=== PATIENT | female | born 1970 | race Caucasian/White ===

== ENCOUNTER 2017-02-18 13:00 | Inpatient (IN) | payer BC ==
[~2017-02-18] VITALS: Ht 157.5 cm; Wt 101.4 kg
--- NOTE | ~2017-02-18 | CON ---
PATIENT'S NAME: GENA VENTURA [facility] AGE: 46 Y [address] ROOM: [address] [place], [place] [address] LOCATION: [facility] ADMIT DATE: 02/18/2017 Consultation DISCHARGE DATE: FAMILY PHYSICIAN: Latasha Harrison MD ATTENDING PHYSICIAN: Corina RHODES REFERRING PHYSICIAN: LUCIA LUNDY MD Consult for TREVON Park. HISTORY OF PRESENT ILLNESS: This 46-year-old lady is referred for rehab/GIRP evaluation admitted on 02/18/2017 with history as per her initial history and physical, she felt achy all over on last Saturday, specially when moving alone. She got up in the morning, feeling that way, later she felt her speech was slurred, she was seen at the local health care. Later CT scan at the local hospital was done which showed no gross abnormalities and it was noticed also that she was also a little bit weaker on the right side, right upper extremity more than right lower extremity. She also was noticed to have a very minimal facial droop on the right side. Denied any fever. No cough, no expectoration, no palpitation, no headaches. Now, she has slight headache, but no trauma. Denied any similar condition in the past. No palpitation. Denied any shortness of breath. She has history of hypertension, probably diabetes, and also status post cholecystectomy. Status post section x2. Alert and oriented. Voice is clear and not wet and very mild right facial droop and there is very mild right distal temporal visual neglect. Tongue is also very mildly weaker on the right side in comparison to the left; however, the soft palate is moving symmetrical. Voice is clear and not wet. She has no shortness of breath at the present time, and she is able to comprehend and express without difficulty. On examination all seems to be within normal limits including chest; however, she has a systolic murmur in the apical region, not radiating. She denied any shortness of breath again upon asking. No clubbing of fingers, no cyanosis. VITAL SIGNS: Blood pressure 158/97, temperature 98.4, pulse 82 and regular, respiration rate 16. She is 5 feet 2 inches and weighs 99.4 kg. Deep tendons are present and equal throughout. PATIENT'S NAME: GENA VENTURA [facility] AGE: 46 Y [address] ROOM: [place] [address] LOCATION: [facility] ADMIT DATE: 02/18/2017 Consultation DISCHARGE DATE: FAMILY PHYSICIAN: Latasha Harrison MD ATTENDING PHYSICIAN: Corina RHODES She can follow without difficulty multistaged instructions. She can move all four. Muscle strength seems to be within normal limits. There is very little if any weakness on the right side upper extremity in comparison to the left. She is a right-handed person. She has good bowel and bladder control at the present time. Sensation is within normal limits. MEDICATIONS: She is on the following medications. 1. Heparin sodium. 2. Insulin detemir. 3. Insulin aspart. 4. NaCl 0.9%. 5. Protonix. 6. Aspirin. 7. Lipitor. 8. Levothyroxine. 9. Glucagon. 10. Glucose. 11. Dextrose. 12. Tylenol. 13. Lisinopril. 14. Metformin. 15. Alogliptin. ASSESSMENT AND PLAN: I feel that this lady is doing well so far. If she continues to do well this way, I think she can go on outpatient basis. However, if she does not do well down the line, I will be happy to take her for intensive rehabilitation. She has been initiated on PT/OT. I will add speech therapy to her therapies. I will follow alongside with you. I would like to follow on her down the line about 2 weeks post discharge. She should not drive for the time being. All the above was explained to her in detail and to her . They verbalized understanding and agreement. I will follow alongside with you. YAMILA HERMAN MD WMS/modl /[id number] d: 02/19/171931 t: 02/20/17 0811, CONSULTATION REPORT
--- NOTE | ~2017-02-18 | CON ---
PATIENT'S NAME: GENA VENTURA [facility] AGE: 46 Y [address] ROOM: [id number] [place], [place] [address] LOCATION: [facility] ADMIT DATE: 02/18/2017 Consultation DISCHARGE DATE: FAMILY PHYSICIAN: Latasha Harrison MD ATTENDING PHYSICIAN: Corina RHODES DATE OF CONSULTATION: 02/19/2017 REFERRING PHYSICIAN: LUCIA LNUDY MD TIME: 02:05 p.m. CHIEF COMPLAINT: Stroke. HISTORY OF PRESENT ILLNESS: This is a 46-year-old female, whose symptoms started on Saturday morning. She was taking a nap and awoke, and felt like her body ached all over, but also her speech was not quite right and her face was drooping. She knew to present in a rapid fashion to the [facility], and underwent evaluation there. She did have a CT scan of the head without contrast, which was negative. She did have an elevated blood sugar, elevated blood pressure, and elevated TSH level. Her A1c was 11.2 and TSH was 25. There was no report of a lipid level being drawn. She was given 3 L of fluids, started on lisinopril and Janumet and Synthroid, and sent home. The patient's symptoms had not resolved, and she was still having facial droop and speech slurring, as well as right upper arm weakness. She then went to the [facility] for further evaluation and treatment. The PA there, Dat Rivas, discussed the case with Dr. Castelan of [facility], and it was recommended that the patient be transferred for MRI and further workup to [facility]. She is admitted at this time for further evaluation. The patient denies any significant past medical history, although she does state she is not a health- thinking individual. She does have some frontal and occipital headaches, which she takes ibuprofen for. They are pounding at times. She usually seeks a dark room, and the symptoms florentino. She denies any history of chest pain, pressure, palpitations, difficulty breathing, any wheezing, or respiratory issues. She denies any abdominal pain, nausea, vomiting, diarrhea, or constipation. She did not have any vision changes with this instance. She does wear glasses, and visited her Eye doctor about two years ago. Although the patient states her family history is positive for diabetes, she has not been diagnosed with it until recently. She did have a neck abscess in 2004, where she was on antibiotics for quite some time. She denies any ill contacts or recent travel. Her life has been a little bit stressful lately because of the graduation of her oldest son. She does work nights and does have issues with sleeping, and appears to catnap throughout the day rather than getting PATIENT'S NAME: GENA VENTURA [facility] AGE: 46 Y [address] ROOM: [id number] [place], [place] [address] LOCATION: [facility] ADMIT DATE: 02/18/2017 Consultation DISCHARGE DATE: FAMILY PHYSICIAN: Latasha Harrison MD ATTENDING PHYSICIAN: Corina RHODES any long stretches of good sleep. PRIOR MEDICAL HISTORY: Includes 1. Chronic headaches. 2. History of neck abscess in 2009. SURGICAL HISTORY: 1. Cholecystectomy in 1999. 2. x2. ALLERGIES: NO KNOWN MEDICAL ALLERGIES. MEDICATIONS: 1. Recently started on Synthroid 25 mcg daily. 2. Janumet 50/500 twice daily. 3. Lisinopril 10 mg daily. FAMILY HISTORY: Significant for diabetes in her mother and two brothers. Her dad had appendiceal cancer and at age 48. Her mother had a pulmonary embolus and at age 46. She is uncertain of the workup that was performed after that, and uncertain whether any condition precipitated the PE. She had one brother who had diabetes and of a heart attack. She has one living brother, who has diabetes and possibly has a blood clot. She has one living sister with no medical illnesses. SOCIAL HISTORY: The patient denies any alcohol or tobacco use. 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 REVIEW OF SYSTEMS: A full review of systems were obtained. Pertinent positives are noted in the HPI. All other review of systems and questions were negative. PHYSICAL EXAMINATION: VITAL SIGNS: The patient is 5 feet 2 inches and weighs 100.5 kilos. Her blood pressure is 159/82, pulse is 78, she is afebrile, and she is 96% on room air. GENERAL: The patient is alert and oriented, in no acute distress. Her affect is somewhat flat. HEENT: Head is normocephalic and atraumatic. Eyes: PERRLA. EOMI. NECK: Supple. No adenopathy or thyromegaly. LUNGS: Clear to auscultation and percussion bilaterally. Breath sounds are PATIENT'S NAME: GENA VENTURA [facility] AGE: 46 Y [address] ROOM: [place] [address] LOCATION: [facility] ADMIT DATE: 02/18/2017 Consultation DISCHARGE DATE: FAMILY PHYSICIAN: Latasha Harrison MD ATTENDING PHYSICIAN: Corina RHODES even and regular throughout. HEART: Regular rate and rhythm without murmur. No carotid bruits were auscultated. ABDOMEN: Soft and nondistended with positive bowel sounds auscultated. No masses. NEUROLOGICAL: As far as her NIH Stroke Scale, 1. Consciousness was zero. 2. Month and age were zero. 3. Open and close eyes was zero. 4. Best gaze was zero. 5. Visual field was zero. 6. Facial paresis was 1. 7. Left arm was zero. 8. Right arm was 1. 9. Left leg was zero. 10. Right leg was 1. 11. Limb ataxia was zero. 12. Sensory was zero. 13. Best language was zero. 14. Dysarthria was 1. 15. Extension and attention were zero. With a total score of 4. There was some slight dysmetria on the right hand with rapid alternating hand movements. The patient's gait was observed earlier with Physical Therapy, and the patient denied any issues with balance and seemed to have an easy wide-based gait. DIAGNOSTIC STUDIES: Her LDL is 190. MRI reveals a left posterior limb internal capsule with centriform nuclei stroke. Her CTA shows web-like stenosis present at the supraclinoid of the left ICA. Her A1c from the admitting hospital was 11.2 and her TSH was 25. EKG shows sinus rhythm. IMPRESSION AND PLAN: 1. 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 We will do a full stroke workup including echo and carotids to evaluate cause of the stroke. Although the patient has had undiagnosed risk factors such as hyperlipidemia and diabetes, as well as hypertension, we cannot assume that these are causes of the stroke without a full workup. 2. History of blood clots in her family. Because of her young age and the history of blood clots in her family, we will do a hypercoagulable workup on this patient. 3. Health-care maintenance. The patient has not seen a healthcare provider for some time. Extensive amount of time was talked to the patient that these comorbid conditions must be controlled to prevent further stroke. PATIENT'S NAME: GENA VENTURA [facility] AGE: 46 Y [address] ROOM: [place] [address] LOCATION: [facility] ADMIT DATE: 02/18/2017 Consultation DISCHARGE DATE: FAMILY PHYSICIAN: Latasha Harrison MD ATTENDING PHYSICIAN: Corina RHODES The patient voiced understanding. 4. Therapies for rehabilitation. She has been started on Speech, OT, and PT therapies. Hopefully, the patient can go home and continue these therapies on an outpatient basis. The plan of care was discussed with Shantelle Gutierrez, nurse practitioner for the Hospitalist team. We do appreciate participating in this patient's care. Please call us if you have any questions. CINTHYA IBARRA APRN FOR DENEEN CASTELAN MD PP/modl /[id number] d: 02/19/17 2321 t: 02/22/17 1743, CONSULTATION REPORT
--- NOTE | ~2017-02-18 | CON ---
PATIENT'S NAME: GENA HARDEN [facility] AGE: 46 Y [address] ROOM: [place] [address] LOCATION: [facility] ADMIT DATE: 02/18/2017 Consultation DISCHARGE DATE: FAMILY PHYSICIAN: Latasha Harrison MD ATTENDING PHYSICIAN: Corina RHODES DATE OF CONSULTATION: 02/19/2017 REFERRING PHYSICIAN: LUCIA LUNDY MD I personally saw and examined the patient, Gean Harden, with nurse practitioner, Arianne Atkinson, on 02/19/2017. [place] portions of history and examination were repeated. I agree with the above discussed assessment and plan of care. MD STELLA CEJAZ/modl /[id number] d: t: 02/20/17 0101, CONSULTATION REPORT
--- NOTE | ~2017-02-18 | HP ---
PATIENT'S NAME: GENA VENTURA [facility] AGE: 46 Y [address] ROOM: [id number] [place], [place] [address] LOCATION: [facility] ADMIT DATE: 02/18/2017 History & Physical DISCHARGE DATE: FAMILY PHYSICIAN: PHYSICIAN, UNKNOWN ATTENDING PHYSICIAN: Corina RHODES DATE OF SERVICE: 02/18/2017 CHIEF COMPLAINT: Right-sided facial droop, right upper extremity weakness, and slurred speech. HISTORY OF PRESENT ILLNESS: The patient is a 46-year-old female, whose symptoms initially started on Saturday morning. She felt that when she woke up, her body just kind of aches all over, and she felt weak. As the morning progressed, she noticed some right- sided facial droop and slurred speech. She did present to [facility] and underwent evaluation there. The patient had a CT scan of the head without contrast, which was reportedly negative. The patient had elevated blood sugar, elevated blood pressure, and elevated TSH level. The patient was given 3 L of IV fluid and was started on Janumet, Synthroid, and lisinopril, and was discharged home. The patient's symptoms continued, and she also started noticing some right arm weakness as well. The patient then went to the [facility] this morning for further evaluation. The PA there, Dat Rivas, discussed the case with Dr. Suresh through tele-neuro, and it was recommended that the patient be transferred for MRI and further workup. The patient is admitted at this time for further evaluation. The patient denies any significant past medical history and does not take any medications. She has chronic headaches, which she describes as migrainous. She gets some pounding at times. Locations maybe frontal or occipital. She usually takes ibuprofen and lies down in a dark place and the symptoms florentino. She denies any chest pain, pressure, or palpitations, orthopnea, or orthostasis or PND. She has not had any abdominal pain, nausea, vomiting, diarrhea, or constipation. She has not had any vision changes. She does wear glasses and last visited her eye doctor 2 years ago. The patient notes significant family history for diabetes, but has never been diagnosed with it thus far. At her last eye exam, she had no changes of diabetic retinopathy. The patient did have history of neck abscess in 2009, which was treated with IV antibiotics, she thinks for 5 weeks. The patient denies any recent illnesses. Denies any recent traumas. Denies any recent skin rashes or lesions. She has been under increased stress recently with the graduation of her oldest son. PAST MEDICAL HISTORY: Illnesses include: PATIENT'S NAME: GENA VENTURA [facility] AGE: 46 Y [address] ROOM: [place] [address] LOCATION: [facility] ADMIT DATE: 02/18/2017 History & Physical DISCHARGE DATE: FAMILY PHYSICIAN: PHYSICIAN, UNKNOWN ATTENDING PHYSICIAN: Corina RHODES 1. Chronic headaches. 2. History of neck abscess in 2009, status post IV antibiotics. SURGICAL HISTORY: Includes cholecystectomy in 1999 and x2. ALLERGIES: NO KNOWN MEDICAL ALLERGIES. MEDICATIONS: Recently started on: 1. Synthroid 25 mcg daily. 2. Janumet 50/500 twice daily. 3. Lisinopril 10 mg daily. FAMILY HISTORY: Significant for diabetes in her mother and 2 brothers. Her dad had appendiceal cancer and at age 48. Her mom had a pulmonary embolus and at age 46. She is uncertain the workup that was performed after that and uncertain whether any conditions precipitated the PE. She had one brother, who had diabetes and of a heart attack, and she has one living brother who has diabetes and possibly have a blood clot. She has one living sister with no medical illnesses. SOCIAL HISTORY: The patient denies any alcohol or tobacco use. 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 REVIEW OF SYSTEMS: Full review of systems was obtained. Pertinent positives are noted above. Others are all deemed to be negative and noncontributory. PHYSICAL EXAMINATION: VITAL SIGNS: The patient is 5 feet 2 inches, weight is 100.5 kilos, blood pressure is 161/92, pulse is 87. She is 96% on room air. GENERAL: The patient is alert, oriented, in no acute distress. HEENT: Head: Normocephalic and atraumatic. Eyes: PERRLA, EOMI. Ears: TMs are intact, nonerythematous, canals are clear. Nose is patent. Mucosa is pink and moist. Throat: Posterior pharynx is not erythematous. No tonsillar hypertrophy or exudates. NECK: Supple. No adenopathy or thyromegaly. LUNGS: Clear to auscultation and percussion bilaterally. Breath sounds are even and regular throughout. HEART: Regular rate and rhythm without murmur. No carotid bruits or JVD. ABDOMEN: Soft, nondistended. Positive bowel sounds auscultated. No masses PATIENT'S NAME: GENA VENTURA [facility] AGE: 46 Y [address] ROOM: [id number] [place], [place] [address] LOCATION: [facility] ADMIT DATE: 02/18/2017 History & Physical DISCHARGE DATE: FAMILY PHYSICIAN: PHYSICIAN, UNKNOWN ATTENDING PHYSICIAN: Corina RHODES or organomegaly palpated. BACK: No CVA tenderness. No paraspinous tenderness on palpation. MUSCULOSKELETAL: Appropriate range of motion is noted in bilateral upper and lower extremities without significant crepitus or joint effusion. NEUROLOGIC: Distal sensation is intact. Cranial nerves 2 through 12 grossly intact. The patient does have a very slight facial droop noted on the right. Power in her right arm is 4/5. Power in her left arm is 5/5. Bilateral lower extremities are equal in strength and ability. LABORATORY STUDIES: From referring facility shows sodium of 138, potassium 3.9, chloride 105, bicarb 22, BUN 12, creatinine 0.9, glucose 247. CK-MB is 1.2, CPK is 35, troponin 0.009. TSH was 25.85, total cholesterol 262. Triglycerides 154, HDL 41, LDL 190. White blood cell count was 8.9, hemoglobin 12.5, hematocrit 37.1, platelets 239. Hemoglobin A1C was 11.2. EKG here shows sinus rhythm with heart rate of 88. IMPRESSION AND PLAN: 1. Right facial droop with right upper extremity weakness and slurred speech. We will rule out CVA with MRI with and without contrast as well as CTA, echo, and carotid Dopplers. 2. New-onset diabetes mellitus with hyperglycemia. We will start Levemir and cover with sliding scale insulin. We will hold on oral agents at this time. Diabetic Ed visited with the patient. 3. Essential hypertension. Continue lisinopril at this time until scans are run. 4. Hypothyroidism. Recently started on Synthroid. We will continue this at this time and follow up appropriately. 5. Morbid obesity. We will continue to encourage lifestyle modifications throughout her stay. 6. Chronic headaches, likely this is due to her elevated blood pressures. We will continue to monitor this closely. CODE STATUS: FULL CODE We do appreciate participating in this patient's care, and thank you very much for the ability to serve her while hospitalized at [facility]. TREVON HOLLIS FOR MEAGAN TAVERAS MD ANU/modl /[id number] D: 034 T: 904 HISTORY & PHYSICAL
--- NOTE | ~2017-02-18 | ENPV ---
Carotid Duplex Study Demographics Patient Name GENA VENTURA Date of Study 02/19/2017 Patient Number [id number] Gender Female Date of 1970 Age 46 Visit Number [id number] Height 62 Accession Number [id number] Weight 219 Referring Maynor Burton PAC Interpreting Alberto Villanueva MD Physician Physician Physician Ordering Physician Maynor Burton Vet Assistant PAC Dry Kiln Loader Yfn Chung [facility], T Conclusions Summary The right internal carotid artery has mild, 1-39%, plaque and stenosis. The right vertebral artery is present with antegrade flow. The left internal carotid artery has mild, 1-39%, plaque and stenosis. The left vertebral artery is present with antegrade flow. Procedure Type of Study: Cerebral:Carotid, Carotid Doppler Bilateral. Indications for Study:Stroke. Appropriate Use Criteria:9 Patient Status:Routine. Study Location:Inpatient Portable. Technical Quality:Adequate visualization. Velocities are measured in cm/s ; Diameters are measured in cm Carotid Right Measurements Carotid Left Measurements + +--------+--------+ + + + +--------+ --------+ + + !Location !PSV !EDV !Angle !%Stenosis ! !Location !PSV ! EDV !Angle !%Stenosis ! + +--------+--------+ + + + +--------+ --------+ + + !Prox CCA !77 !23 !60 ! ! !Prox CCA !72 ! 12 !60 ! ! + +--------+--------+ + + + +--------+ --------+ + + !Dist CCA !75 !21 !60 ! ! !Dist CCA !79 ! 21 !60 ! ! + +--------+--------+ + + + +--------+ --------+ + + !Prox ICA !59 !17 !60 ! ! !Prox ICA !76 ! 24 !60 ! ! + +--------+--------+ + + + +--------+ --------+ + + !Dist ICA !49 !19 !60 ! ! !Dist ICA !53 ! 18 !60 ! ! + +--------+--------+ + + + +--------+ --------+ + + !Prox ECA !91 !18 !60 ! ! !Prox ECA !116 ! 14 !60 ! ! + +--------+--------+ + + + +--------+ --------+ + + !Vertebral !29 !11 !60 ! ! !Vertebral !41 ! 10 !60 ! ! + +--------+--------+ + + + +--------+ --------+ + + !Subclavian !143 ! !60 ! ! !Subclavian !104 ! !60 ! ! + +--------+--------+ + + + +--------+ --------+ + + - There is antegrade vertebral flow noted on the right side. - There is antegrade verte bral flow noted on the left side. - Add'l Measurements:Subclavian PRV 143 cm/sICAPSV/CCAPSV - Add'l Measurements:Subcl мария PRV 104 cm/sICAPSV/CCAPSV 0.77.ICAEDV/CCAEDV 0.83. 1.06.ICAEDV/CCAEDV 2. Signature dtt: Pavan Dominguez dtd: 02/19/17 0802 Physician Self Edit
--- NOTE | ~2017-02-18 | DS ---
PATIENT'S NAME: GENA VENTURA [facility] AGE: 46 Y [address] ROOM: [address] [place], [place] [address] LOCATION: TU ADMIT DATE: 02/18/2017 Discharge Summary DISCHARGE DATE: 02/20/2017 FAMILY PHYSICIAN: Latasha Harrison MD ATTENDING PHYSICIAN: Pedrito Arriaga CONSULTING PHYSICIANS: Teleneurology and Dr. Martinez. DISCHARGE DIAGNOSES: 1. Left internal capsule acute cerebrovascular accident. 2. New onset diabetes mellitus type 2. 3. Hypothyroidism. 4. Essential hypertension. 5. Escherichia coli urinary tract infection. 6. Hypercholesterolemia. 7. Obesity. HOSPITAL COURSE: Please refer to admitting history and physical as dictated by Ellie Mcguire PA-C. Briefly, the patient was admitted to [facility] with right upper extremity weakness and right facial droop. MRI was performed, which did show a left internal capsule acute ischemic CVA. Further stroke workup was obtained. Carotid Doppler showed 1% to 39% plaque and stenosis bilaterally. CTA of the head and neck did show some atherosclerotic irregularity of the bilateral cavernous and supraclinoid ICAs. No carotid or vertebral stenosis. She was started on Lipitor 80 mg p.o. daily. She was found to have an LDL of 190, HDL 41, triglycerides 154, and total cholesterol 262. Upon admit, outside hospital TSH was shown to be 25.85. She was started on Synthroid 25 mcg p.o. daily. Hemoglobin A1c was found to be 11.2. She was managed with Levemir and sliding scale insulin. Urine culture did reveal greater than 100,000 E. coli. She was initially placed on ceftriaxone and subsequently switched to Levaquin for 7 days on the day of discharge. She was started on a baby aspirin 81 mg per day. PT, OT, and ST all consulted and worked with the patient throughout her stay. Neurology did see the patient. Coag panel workup was initiated; however, was still pending on the day of discharge. It is recommended that she follow up for the results of that with her primary care provider. She did gradually improve. Her blood pressure had stabilized without medications. On 02/20/2017, it was felt as though the patient was stable to be discharged to home with followup with Dr. Harrison on 02/22/2017. I did call and speak with Dr. Harrison's nurse regarding the patient's hospitalization and the pending coag workup. She should monitor her blood sugars 3 times a day, record those and take them with her to her appointment. LABORATORY DATA: Sodium remained stable at 142, potassium 3.7 to 3.5, calcium 8.3, BUN 12, creatinine 0.6, magnesium 2.0, GFR remained greater than 60. PATIENT'S NAME: GENA VENTURA [facility] AGE: 46 Y [address] ROOM: [address] [place], [place] [address] LOCATION: T ADMIT DATE: 02/18/2017 Discharge Summary DISCHARGE DATE: 02/20/2017 FAMILY PHYSICIAN: Latasha Harrison MD ATTENDING PHYSICIAN: Pedrito Arriaga Hemoglobin A1c 14.0. WBC 7.2, hemoglobin 11.6, hematocrit 35.1, platelets 191. UA: Leukocytes 500, nitrites positive, protein 30, glucose 50, ketones 15. Urine culture, E. coli. Radiology reports, please refer to hospital course. DISCHARGE MEDICATIONS: 1. Aspirin 81 mg p.o. daily. 2. Lipitor 80 mg p.o. daily. 3. NovoLog mild sliding scale subcu before meals 3 times a day. 4. Levemir 15 units subcu twice daily. 5. Synthroid 25 mcg p.o. daily. 6. Glucose 4 g tablets, take 4 tablets p.o. for hypoglycemia if blood sugar less than 70. 7. Levaquin 750 mg p.o. daily x1 week. 8. NovoLog insulin to carb ratio, 1 unit NovoLog per 15 g of carbs 3 times daily with meals. 9. Probiotic of choice, take as directed per box instructions while on Levaquin. DISCHARGE INSTRUCTIONS: The patient will be discharged to home. DIET: ADA. ACTIVITY: No driving until re-evaluated. FOLLOWUP: Followup appointment with Dr. Harrison on Saturday at 9:30. Followup appointment with Dr. Dixon in 4 weeks. Accu-Cheks 3 times daily, record and take to Dr. Harrison's office. LFTs and TSH in 6 weeks with PCP. PT, OT, and ST to evaluate and treat as an outpatient for CVA. Follow up with primary care provider for pending coag workup. Thank you for allowing us to participate in the care of this patient as she has been hospitalized at [facility]. Time spent at the bedside and coordination of care 40 minutes. NIK DANIELSON APRN FOR MD STEPHANIE MANUEL/elizabeth /[id number] d: 02/21/17 1010 t: 02/22/17 1553, DISCHARGE SUMMARY
--- NOTE | ~2017-02-18 | HP ---
PATIENT'S NAME: GENA VENTURA [facility] AGE: 46 Y [address] ROOM: [address] [place], [place] [address] LOCATION: [facility] ADMIT DATE: 02/18/2017 History & Physical DISCHARGE DATE: FAMILY PHYSICIAN: PHYSICIAN, UNKNOWN ATTENDING PHYSICIAN: Corina RHODES DATE OF SERVICE: 02/18/2017 CHIEF COMPLAINT: Right-sided facial droop, right upper extremity weakness, and slurred speech. HISTORY OF PRESENT ILLNESS: The patient is a 46-year-old female, whose symptoms initially started on Saturday morning. She felt that when she woke up, her body just kind of aches all over, and she felt weak. As the morning progressed, she noticed some right- sided facial droop and slurred speech. She did present to [facility] and underwent evaluation there. The patient had a CT scan of the head without contrast, which was reportedly negative. The patient had elevated blood sugar, elevated blood pressure, and elevated TSH level. The patient was given 3 L of IV fluid and was started on Janumet, Synthroid, and lisinopril, and was discharged home. The patient's symptoms continued, and she also started noticing some right arm weakness as well. The patient then went to the [facility] this morning for further evaluation. The PA there, Dat Rivas, discussed the case with Dr. Suresh through tele-neuro, and it was recommended that the patient be transferred for MRI and further workup. The patient is admitted at this time for further evaluation. The patient denies any significant past medical history and does not take any medications. She has chronic headaches, which she describes as migrainous. She gets some pounding at times. Locations maybe frontal or occipital. She usually takes ibuprofen and lies down in a dark place and the symptoms florentino. She denies any chest pain, pressure, or palpitations, orthopnea, or orthostasis or PND. She has not had any abdominal pain, nausea, vomiting, diarrhea, or constipation. She has not had any vision changes. She does wear glasses and last visited her eye doctor 2 years ago. The patient notes significant family history for diabetes, but has never been diagnosed with it thus far. At her last eye exam, she had no changes of diabetic retinopathy. The patient did have history of neck abscess in 2009, which was treated with IV antibiotics, she thinks for 5 weeks. The patient denies any recent illnesses. Denies any recent traumas. Denies any recent skin rashes or lesions. She has been under increased stress recently with the graduation of her oldest son. PAST MEDICAL HISTORY: Illnesses include: PATIENT'S NAME: GENA VENTURA [facility] AGE: 46 Y [address] ROOM: [place] [address] LOCATION: [facility] ADMIT DATE: 02/18/2017 History & Physical DISCHARGE DATE: FAMILY PHYSICIAN: PHYSICIAN, UNKNOWN ATTENDING PHYSICIAN: Corina RHODES 1. Chronic headaches. 2. History of neck abscess in 2009, status post IV antibiotics. SURGICAL HISTORY: Includes cholecystectomy in 1999 and x2. ALLERGIES: NO KNOWN MEDICAL ALLERGIES. MEDICATIONS: Recently started on: 1. Synthroid 25 mcg daily. 2. Janumet 50/500 twice daily. 3. Lisinopril 10 mg daily. FAMILY HISTORY: Significant for diabetes in her mother and 2 brothers. Her dad had appendiceal cancer and at age 48. Her mom had a pulmonary embolus and at age 46. She is uncertain the workup that was performed after that and uncertain whether any conditions precipitated the PE. She had one brother, who had diabetes and of a heart attack, and she has one living brother who has diabetes and possibly have a blood clot. She has one living sister with no medical illnesses. SOCIAL HISTORY: The patient denies any alcohol or tobacco use. 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 REVIEW OF SYSTEMS: Full review of systems was obtained. Pertinent positives are noted above. Others are all deemed to be negative and noncontributory. PHYSICAL EXAMINATION: VITAL SIGNS: The patient is 5 feet 2 inches, weight is 100.5 kilos, blood pressure is 161/92, pulse is 87. She is 96% on room air. GENERAL: The patient is alert, oriented, in no acute distress. HEENT: Head: Normocephalic and atraumatic. Eyes: PERRLA, EOMI. Ears: TMs are intact, nonerythematous, canals are clear. Nose is patent. Mucosa is pink and moist. Throat: Posterior pharynx is not erythematous. No tonsillar hypertrophy or exudates. NECK: Supple. No adenopathy or thyromegaly. LUNGS: Clear to auscultation and percussion bilaterally. Breath sounds are even and regular throughout. HEART: Regular rate and rhythm without murmur. No carotid bruits or JVD. ABDOMEN: Soft, nondistended. Positive bowel sounds auscultated. No masses PATIENT'S NAME: GENA VENTURA [facility] AGE: 46 Y [address] ROOM: [address] [place], [place] [address] LOCATION: [facility] ADMIT DATE: 02/18/2017 History & Physical DISCHARGE DATE: FAMILY PHYSICIAN: PHYSICIAN, UNKNOWN ATTENDING PHYSICIAN: Corina RHODES or organomegaly palpated. BACK: No CVA tenderness. No paraspinous tenderness on palpation. MUSCULOSKELETAL: Appropriate range of motion is noted in bilateral upper and lower extremities without significant crepitus or joint effusion. NEUROLOGIC: Distal sensation is intact. Cranial nerves 2 through 12 grossly intact. The patient does have a very slight facial droop noted on the right. Power in her right arm is 4/5. Power in her left arm is 5/5. Bilateral lower extremities are equal in strength and ability. LABORATORY STUDIES: From referring facility shows sodium of 138, potassium 3.9, chloride 105, bicarb 22, BUN 12, creatinine 0.9, glucose 247. CK-MB is 1.2, CPK is 35, troponin 0.009. TSH was 25.85, total cholesterol 262. Triglycerides 154, HDL 41, LDL 190. White blood cell count was 8.9, hemoglobin 12.5, hematocrit 37.1, platelets 239. Hemoglobin A1C was 11.2. EKG here shows sinus rhythm with heart rate of 88. IMPRESSION AND PLAN: 1. Right facial droop with right upper extremity weakness and slurred speech. We will rule out CVA with MRI with and without contrast as well as CTA, echo, and carotid Dopplers. 2. New-onset diabetes mellitus with hyperglycemia. We will start Levemir and cover with sliding scale insulin. We will hold on oral agents at this time. Diabetic Ed visited with the patient. 3. Essential hypertension. Continue lisinopril at this time until scans are run. 4. Hypothyroidism. Recently started on Synthroid. We will continue this at this time and follow up appropriately. 5. Morbid obesity. We will continue to encourage lifestyle modifications throughout her stay. 6. Chronic headaches, likely this is due to her elevated blood pressures. We will continue to monitor this closely. CODE STATUS: FULL CODE We do appreciate participating in this patient's care, and thank you very much for the ability to serve her while hospitalized at [facility]. TREVON HOLLIS FOR MEAGAN TAVERAS MD ANU/modl /[id number] D: [id number] T: [id number] HISTORY & PHYSICAL
--- NOTE | ~2017-02-18 | ECHO ---
Transthoracic Echocardiography Report (TTE) Demographics Patient Name GENA VENTURA Date of Study 02/19/2017 J Patient Number [id number] Visit Number [id number] Date of 1970 Room Number [address] Gender Female Number Age 46 year(s) Referring Maynor RAMON Breaker Off Yfn Chung RDCS, Physician RVT Physician Interpreting Aaron Plascencia Wound Care Coordinator Physician MD Supervising Ordering Maynor RAMON MD/MLP Physician Nurse Stress Vinyl Dipper Conclusions Contractility Score Summary Normal Left Ventricular contractility was noted. Summary The estimated left ventricular ejection fraction is 60%.Mild concentric left ventricular hypertrophy.Normal internal dimension.WM is difficult to comment on. The left atrium is severely dilated by LA volume index measurement. Informed consent was obtained, bubble study was done, there is no evidence for a PFO or ASD. Increased RA pressures. Procedure Type of Study TTE procedure:2D Echocardiogram. Procedure Date Date: 02/19/2017 Start: 07:19 AM Study Location: Inpatient Portable Technical Quality: Adequate visualization Indications:CVA. Appropriate Use Criteria: 9 Patient Status: Routine Contrast Medium: Bubble Study. HR: 83 bpm BP: 158/87 mmHg M-Mode/2D Measurements LV Diastolic Dimension: 3.99 cm LV Systolic Dimension: 2.63 cm LV Septum Diastolic: 0.99 cm LV PW Diastolic: 0.91 cm AO Root Dimension: 2.4 cm Cardiac Output: 5.92 l/min AV Cusp Separation: 2.1 cm RV Diastolic Dimension: 2.87 cm LA volume: 95 ml LVOT: 2 cm RV Base: 3.01 cm LVOT VTI: 22.7 cm RV Mid: 2.34 cm LV Stroke volume: 71.28 ml TAPSE: 2.78 cm TDI-S': 12.3 cm/s Doppler Measurements AV Peak Velocity: 1.25 m/s MV Peak E-Wave: 0.89 m/s AV Peak Gradient: 6.25 mmHg MV Peak A-Wave: 0.83 m/s AV Mean Gradient: 4 mmHg MV E/A Ratio: 1.07 LVOT Peak Velocity: 0.98 m/s MV P1/2t: 77 msec TR Gradient:13.25 mmHg PV Peak Velocity: 1.19 m/s Estimated RAP:15 mmHg PV Peak Gradient: 5.66 mmHg Estimated RVSP: 28 mmHg Estimated PASP: 28.25 mmHg E' Septal Velocity: 0.05 m/s A' Septal Velocity: 0.08 m/s E' Lateral Velocity: 0.1 m/s A' Lateral Velocity: 0.08 m/s Findings Left Ventricle Mild concentric left ventricular hypertrophy with normal internal dimension and EF.WM is difficult to comment on due to TDS. Right Ventricle Normal right ventricle structure and function. Left Atrium The left atrium is severely dilated by LA volume index measurement. Informed consent was obtained, bubble study was done, there is no evidence for a PFO or ASD. Right Atrium Normal right atrial size. Dilated IVC with poor inspiratory collapse consistent with elevated RA pressure. Mitral Valve Mild mitral annular calcification. Trivial mitral regurgitation by color Doppler. Aortic Valve Normal aortic valve structure and function. Tricuspid Valve Trivial tricuspid regurgitation by color Doppler. Pulmonic Valve Normal pulmonic valve structure and function. Pericardial Effusion No evidence of pericardial effusion. Miscellaneous Visualized portions of the aortic root and ascending aorta appear normal in size. Pleural Effusion No evidence of pleural effusion. Contractility Score LV regional wall motion:(0-Non visualized 1-Normal 2-Hypokinesis 3-Akinesis 4-Dyskinesis 5-Aneurysm) Signature dtt: Thais Walker dtd: 02/19/17 0719 Physician Self Edit
[2017-02-18] MEDS ORDERED: ADVIL200 MG PO (15:06)
[2017-02-18 16:02] LABS: CREATININE 0.6 mg/dL (0.5-1.1); ESTIMATED GFR (MDRD EQUATION) > 60
[2017-02-18 17:33] LABS: BILIRUBIN URINE NEGATIVE (NEGATIVE); BLOOD URINE 25 /UL (NEGATIVE); GLUCOSE URINE 50 mg/dL (NEGATIVE); KETONE URINE 15 mg/dL (NEGATIVE); LEUKOCYTES URINE 500 /UL (NEGATIVE); NITRITE URINE POSITIVE (NEGATIVE); PROTEIN URINE 30 mg/dL (NEGATIVE); UROBILINOGEN URINE NORMAL (NORMAL)
[2017-02-18 17:41] LABS: COLOR URINE YELLOW (YELLOW); TURBIDITY URINE 3+ (CLEAR)
[2017-02-18 17:43] LABS: WBC URINE 20-50 #/HPF (NEGATIVE)
[2017-02-18 17:44] LABS: BACTERIA URINE MANY (NEGATIVE)
[2017-02-18 17:45] LABS: HYALINE CAST URINE 0-2 #/LPF (NEGATIVE)
[2017-02-19 04:21] LABS: BASOPHIL # 0.1 K/uL (0.0-0.2); BASOPHIL % 0.6 %; EOSINOPHIL # 0.2 K/uL (0.0-0.5); EOSINOPHIL % 1.7 %; HEMATOCRIT 36.5 % (33.0-46.0); HEMOGLOBIN 11.9 g/dL (10.0-15.0); IMMATURE GRANULOCYTE # 0.1 K/uL (0.0-0.3); IMMATURE GRANULOCYTE % 0.7 %; LYMPHOCYTE # 2.3 K/uL (0.8-4.0); MCH 29.5 pg (27.0-34.0); MCHC 32.6 gm/dL (32.0-36.5); MCV 90.6 fl (83.0-98.0); MONOCYTE # 0.6 K/uL (0.0-1.0); MONOCYTE % 6.3 %; MPV 9.7 fl (9.4-12.4); NEUTROPHIL # (ANC) 5.6 K/uL (1.8-7.8); NEUTROPHIL % 64.7 %; NRBC % 0 /100WBC (0-0.00); PLATELET COUNT 210 K/uL (150-450); RBC 4.03 M/uL (3.50-5.50); WBC 8.7 K/uL (4.0-11.0)
[2017-02-19 04:34] LABS: ANION GAP 11.7 (10.0-19.0); BLOOD UREA NITROGEN 11 mg/dL (6-24); CALCIUM 8.4 mg/dL (8.5-10.5); CHLORIDE 109 mMol/L (96-110); CO2 25 mMol/L (22-32); CREATININE 0.6 mg/dL (0.5-1.1); ESTIMATED GFR (MDRD EQUATION) > 60; PHOSPHORUS 3.9 mg/dL (2.5-4.9); POTASSIUM 3.7 mMol/L (3.7-5.1); SODIUM 142 mMol/L (135-145)
[2017-02-20 05:36] LABS: BASOPHIL # 0.1 K/uL (0.0-0.2); BASOPHIL % 0.7 %; EOSINOPHIL # 0.2 K/uL (0.0-0.5); EOSINOPHIL % 2.4 %; HEMATOCRIT 35.1 % (33.0-46.0); HEMOGLOBIN 11.6 g/dL (10.0-15.0); IMMATURE GRANULOCYTE % 0.6 %; LYMPHOCYTE # 1.8 K/uL (0.8-4.0); MCH 29.7 pg (27.0-34.0); MCV 89.8 fl (83.0-98.0); MONOCYTE # 0.4 K/uL (0.0-1.0); MONOCYTE % 5.4 %; MPV 9.6 fl (9.4-12.4); NEUTROPHIL # (ANC) 4.8 K/uL (1.8-7.8); NEUTROPHIL % 65.9 %; NRBC % 0 /100WBC (0-0.00); PLATELET COUNT 191 K/uL (150-450); RBC 3.91 M/uL (3.50-5.50); WBC 7.2 K/uL (4.0-11.0)
[2017-02-20 05:49] LABS: ANION GAP 10.5 (10.0-19.0); BLOOD UREA NITROGEN 12 mg/dL (6-24); CALCIUM 8.3 mg/dL (8.5-10.5); CHLORIDE 111 mMol/L (96-110); CO2 24 mMol/L (22-32); CREATININE 0.6 mg/dL (0.5-1.1); ESTIMATED GFR (MDRD EQUATION) > 60; POTASSIUM 3.5 mMol/L (3.7-5.1); SODIUM 142 mMol/L (135-145)
[2017-02-20] MEDS ORDERED: ASPIRIN (CHILDR81 MG PO (12:20)
[2017-02-20] MEDS ORDERED: LIPITOR80 MG PO (12:29)
[2017-02-20] MEDS ORDERED: NOVOLOG FL100 UNIT/1 SUB-Q (12:30)
[2017-02-20] MEDS ORDERED: LEVEMIR FL100 UNIT/1 SUB-Q (12:31)
[2017-02-20] MEDS ORDERED: LEVOTHROID (SY25 MCG PO (12:32)
[2017-02-20] MEDS ORDERED: GLUCOSE4 GM PO (12:34)
[2017-02-20] MEDS ORDERED: LEVAQUIN 750 M750 MG PO (12:34)
[2017-02-20] MEDS ORDERED: NOVOLOG100 UNIT/M SUB-Q (12:36)
[2017-02-20] MEDS ORDERED: PROBIOTIC1 EAC6 (12:37)
== END 2017-02-20 13:35 | disposition disaster alternative care site (69) | DRG 65 ==
LOC: GNTU 14:48
PROVIDERS: Hospitalist; Physician Assistant; ADMIT Internal Medicine
DX: I63.9 Cerebral infarction, unspecified (principal); G81.91 Hemiplegia, unspecified affecting right dominant side; E11.65 Type 2 diabetes mellitus with hyperglycemia; I10 Essential (primary) hypertension; Z68.41 Body mass index [BMI] 40.0-44.9, adult; N39.0 Urinary tract infection, site not specified; R29.810 Facial weakness; R47.81 Slurred speech; B96.20 Unspecified Escherichia coli [E. coli] as the cause of diseases classified elsewhere; E03.9 Hypothyroidism, unspecified; R51 Headache; R29.704 NIHSS score 4; E66.01 Morbid (severe) obesity due to excess calories; E78.5 Hyperlipidemia, unspecified
CPT/HCPCS: A9577; J0696; J1644; J7030; J7040; Q9967

== ENCOUNTER → 2017-02-18 | Outpatient (CLI) | payer BC ==
[~2017-02-18] MED LIST: ADVIL200 MG PO; ASPIRIN (CHILDR81 MG PO; GLUCOSE4 GM PO; LEVAQUIN 750 M750 MG PO; LEVEMIR FL100 UNIT/1 SUB-Q; LEVOTHROID (SY25 MCG PO; LIPITOR80 MG PO; NOVOLOG FL100 UNIT/1 SUB-Q; NOVOLOG100 UNIT/M SUB-Q; PROBIOTIC1 EAC6
== END | disposition disaster alternative care site (69) ==
LOC: GAMB 13:03
DX: R41.82 Altered mental status, unspecified (principal); I10 Essential (primary) hypertension; E03.9 Hypothyroidism, unspecified; R53.1 Weakness; R29.810 Facial weakness; Z79.899 Other long term (current) drug therapy
CPT/HCPCS: A0425; A0428